=== PATIENT | male | born 1970 | race Two or more races ===

== ENCOUNTER 2024-02-14 11:34 | Emergency (ER) | payer MEDICAID, OTHER ==
[~2024-02-14] VITALS: Ht 172.7 cm; Wt 63.6 kg
[2024-02-14] MEDS: LIDOCAINE 1% HCL (LOCAL ANESTH.) INJ 20ML MDV IJ ONE (12:11)
[2024-02-14 12:14] VITALS: BP 107/75; PULSE 89; RESP 16; TEMP 98.3; O2SAT 98
[2024-02-14] MEDS ORDERED: BACDST PO (12:24)
[2024-02-14] MEDS ORDERED: NAPR-746 PO (12:24)
[2024-02-14] MEDS: cefTRIAXone SOD 1,000 MG VL IM ONE (12:33)
== END 2024-02-14 12:36 | disposition home or self-care (01) ==
LOC: ER 11:34
DX: L02.413 Cutaneous abscess of right upper limb (principal); E11.9 Type 2 diabetes mellitus without complications
CPT/HCPCS: 10060; 87077; 87186; 87205; 96372; 99283; J0696; J2001

== ENCOUNTER 2024-02-16 16:01 | Emergency (ER) | payer MEDICAID ==
[~2024-02-16] VITALS: Ht 172.7 cm; Wt 79.2 kg
[~2024-02-16 16:01] MED LIST: BACDST PO; NAPR-746 PO
[2024-02-16 18:31] VITALS: BP 124/74; PULSE 87; RESP 16; TEMP 97.8; O2SAT 97
[2024-02-16] MEDS: KETOROLAC TROMETH 30 MG/ML 1ML VIAL IM ONE (19:04)
== END 2024-02-16 19:13 | disposition home or self-care (01) ==
LOC: ER 16:01
DX: M79.621 Pain in right upper arm (principal); E11.9 Type 2 diabetes mellitus without complications; Z48.01 Encounter for change or removal of surgical wound dressing; Z79.899 Other long term (current) drug therapy
CPT/HCPCS: 96372; 99283; J1885

== ENCOUNTER 2024-02-19 11:13 | Emergency (ER) | payer MEDICAID ==
[~2024-02-19] VITALS: Ht 167.6 cm; Wt 77.0 kg
[2024-02-19 12:15] VITALS: BP 113/80; PULSE 97; RESP 18; TEMP 98.2; O2SAT 98
== END 2024-02-19 13:12 | disposition home or self-care (01) ==
LOC: ER 11:13
DX: Z48.00 Encounter for change or removal of nonsurgical wound dressing (principal); E11.9 Type 2 diabetes mellitus without complications

== ENCOUNTER 2024-02-21 15:47 | Emergency (ER) | payer MEDICAID ==
[~2024-02-21] VITALS: Ht 170.2 cm; Wt 74.7 kg
[2024-02-21 17:25] VITALS: BP 113/79; PULSE 101; RESP 16; TEMP 98.8; O2SAT 98
== END 2024-02-21 17:59 | disposition home or self-care (01) ==
LOC: ER 15:47
DX: Z48.01 Encounter for change or removal of surgical wound dressing (principal)